=== PATIENT | male | born 1980 | race Caucasian/White ===

== ENCOUNTER 2016-08-11 16:00 | Emergency (ER) | payer OTHER ==
[~2016-08-11] VITALS: Ht 177.8 cm; Wt 93.5 kg
[2016-08-11 16:38] VITALS: TEMP 36.3; Ht 177.8 cm; Wt 93.5 kg
[2016-08-11] MEDS ORDERED: ONDANSETRON INJ 2 MG/ML 2 ML VIAL IV STA (17:27)
[2016-08-11] MEDS ORDERED: MoRPHine SULFATE 10 MG/ML CARP/VIAL IV STA ×2 (17:27→18:11)
[2016-08-11] MEDS ORDERED: SODIUM CHLORIDE 0.9% 1000ML 1,000 ML IV STA (17:27)
[2016-08-11 17:47] LABS: BUN/CREATININE RATIO 8.4 (10-20); CREATININE 1.3 mg/dl (0.60-1.40); POTASSIUM 3.7 mmol/L (3.5-5.1)
[2016-08-11 17:51] LABS: BASO % 0.2 %; BASO ABS # 0.04 K/uL (0-0.2); COMPLETE YES; EOS % 0.4 %; HEMATOCRIT 43.2 % (42-52); IG% 0.3 %; LYMPH % 8.6 %; LYMPH ABS # 1.68 K/uL (1.2-3.4); MEAN CELL VOLUME 89.1 fL (80-100); MEAN CORPUSCULAR HEMOGLOBIN 30.3 pg (25-34); MEAN PLATELET VOLUME 11.5 fL (7.4-10.4); MONO % 6.2 %; NEUT % 84.3 %; PLATELET COUNT 307 K/uL (130-400); RED BLOOD COUNT 4.85 M/uL (4.7-6.1); WHITE BLOOD COUNT 19.57 K/uL (4.8-10.8)
[2016-08-11 17:54] LABS: URINE APPEARANCE CLEAR (CLEAR); URINE BILIRUBIN NEG (NEG); URINE COLOR YELLOW; URINE EPITHELIAL CELL AUTO 0-5 /lpf (0-5); URINE NITRITE NEG (NEG); UROBILINOGEN NEG (NEG)
[2016-08-11 17:59] LABS: MANUAL MICROSCOPIC REQUIRED? NO; REVIEW REQ? NO
--- NOTE | 2016-08-11 18:16 | DIAGNOSTIC IMAGING REPORT ---
ABDOMEN AND PELVIS CT WITHOUT CONTRAST CT DOSE: 914.49 mGy.cm HISTORY: Pain EVALUATE FLANK PAIN/HEMATURIA TECHNIQUE: Multiaxial CT images of the abdomen and pelvis were performed without the use of intravenous and oral contrast according to the standard department stone protocol. COMPARISON STUDY: None. FINDINGS: Lung bases are clear. Liver spleen and pancreas are unremarkable. Gallbladder is negative for distention. There are several small calcifications of the kidneys bilaterally considered nonobstructive. There is mild right hydroureteronephrosis. There is a 2 mm obstructing calculus the distal right ureter. Bladder is midline. There are no contained calcifications. Bowel pattern overall is nonobstructive. The appendix is normal. IMPRESSION: 1. 2 mm obstructing distal right ureteral calculus. 2. Mild right hydroureteronephrosis. 3. Several additional nonobstructing renal calcifications bilaterally Electronically signed by: Bonifacio Lawson M.D. 08/11/2016 6:15 PM Dictated Date/Time: 08/11/2016 6:13 PM
[2016-08-11] MEDS ORDERED: HYDR-5688 PO (18:46)
[2016-08-11 19:00] VITALS: BP 138/88; PULSE 66; O2SAT 100
--- NOTE | 2016-08-14 11:02 | EMERGENCY ROOM VISIT NOTE ---
ED Visit Note First contact with patient: 16:50 Chief Complaint: Right flank pain. History of Present Illness: Mr. Kothari is a 36 year-old white male who ambulates into the ED complaining of right flank pain. Historically patient reports no significant past medical history. Patient reports a acute onset of right flank pain that started approximately 4 hours ago. Since that time the pain has been has been constant but slightly waxed and waned in intensity. The pain is currently described as sharp and cramping. The pain is radiating into the right lower quadrant and penis. He rates his discomfort 10/10. He has not identified any aggravating or alleviating factors related to the pain. He has not taken any medications for pain prior to arrival at the hospital. Associated with his pain he reports he' s had chills with sweats and nausea with multiple episodes of vomiting. Patient denies iain fevers, skin eruptions, skin color changes, upper respiratory tract symptoms, shortness of breath, chest pain, diarrhea, constipation, rectal bleeding, black/tarry stools, urinary symptoms, hematuria. Review of Systems: As noted above in history of present illness. All body systems were reviewed and found to be negative as noted above. Past Medical History: Patient denies. Current Medications: Patient denies. Allergies to Medications: Patient denies. Social History: Patient is currently employed; he feels safe in his home environment; he denies tobacco use. Physical Examination: Vital Signs: Date Time Temp Pulse Resp B/P Pulse Ox O2 Delivery O2 Flow Rate FiO2 08/11/16 19:00 66 18 138/88 100 08/11/16 17:35 62 18 146/97 100 Room Air 08/11/16 16:38 36.3 69 18 146/86 100 Room Air GENERAL: 36-year-old male in moderate distress due to pain, nontoxic-appearing, afebrile and hemodynamically stable. NEUROLOGICAL: Awake, alert and oriented to person, place and time. Answering questions appropriately and following commands. Normal gait. Good hand eye coordination. SKIN: Warm, dry and pink. No soft tissue eruptions or trauma noted. HEENT: Atraumatic and normocephalic. PERRLA. Sclera white and conjunctiva pink. Pharynx is nonerythematous or edematous. Speech normal. Trachea midline. No jugular venous distention. BACK: No tenderness over the bony cervical, thoracic and lumbar spine. No tenderness throughout the paraspinous muscles. No palpable muscle spasm. No CVA tenderness. THORAX: Lungs sounds are clear to auscultation and equal bilaterally with symmetrical chest wall. No wheezing, rales or rhonchi. HEART: Regular rate and rhythm. No gallops, rubs or murmurs are appreciated. ABDOMEN: Flat, soft and nontender. Positive bowel sounds in all quadrants. No guarding, rigidity or organomegaly. EXTREMITIES: Moves all extremities well on command and with purpose. All distal neurovascular statuses are intact and equal bilaterally. ED Course: Patient is assessed as noted above. Laboratory Testing: Test 08/11/16 16:45 08/11/16 16:55 Range/Units Urine Color YELLOW Urine Appearance CLEAR CLEAR Urine pH 5.0 4.5-7.5 Urine Specific [place] 1.020 1.000-1.030 Urine Protein NEG NEG Urine Glucose (UA) NEG NEG Urine Ketones 3+ NEG Urine Occult Blood 3+ NEG Urine Nitrite NEG NEG Urine Bilirubin NEG NEG Urine Urobilinogen NEG NEG Urine Leukocyte Esterase NEG NEG Urine WBC (Auto) 1-5 0-5 /hpf Urine RBC (Auto) >30 0-4 /hpf Urine Hyaline Casts (Auto) 1-5 0-5 /lpf Urine Epithelial Cells (Auto) 0-5 0-5 /lpf Urine Bacteria (Auto) NEG NEG White Blood Count 19.57 4.8-10.8 K/uL Red Blood Count 4.85 4.7-6.1 M/uL Hemoglobin 14.7 14.0-18.0 g/dL Hematocrit 43.2 42-52 % Mean Corpuscular Volume 89.1 80-100 fL Mean Corpuscular Hemoglobin 30.3 25-34 pg Mean Corpuscular Hemoglobin Concent 34.0 32-36 g/dl Platelet Count 307 130-400 K/uL Mean Platelet Volume 11.5 7.4-10.4 fL Neutrophils (%) (Auto) 84.3 % Lymphocytes (%) (Auto) 8.6 % Monocytes (%) (Auto) 6.2 % Eosinophils (%) (Auto) 0.4 % Basophils (%) (Auto) 0.2 % Neutrophils # (Auto) 16.51 1.4-6.5 K/uL Lymphocytes # (Auto) 1.68 1.2-3.4 K/uL Monocytes # (Auto) 1.21 0.11-0.59 K/uL Eosinophils # (Auto) 0.08 0-0.5 K/uL Basophils # (Auto) 0.04 0-0.2 K/uL RDW Standard Deviation 44.7 36.4-46.3 fL RDW Coefficient of Variation 13.7 11.5-14.5 % Immature Granulocyte % (Auto) 0.3 % Immature Granulocyte # (Auto) 0.05 0.00-0.02 K/uL Sodium Level 142 136-145 mmol/L Potassium Level 3.7 3.5-5.1 mmol/L Chloride Level 106 98-107 mmol/L Carbon Dioxide Level 26 21-32 mmol/L Anion Gap 10.0 3-11 mmol/L Blood Urea Nitrogen 11 7-18 mg/dl Creatinine 1.30 0.60-1.40 mg/dl Est Creatinine Clear Calc Drug Dose 91.1 ml/min Estimated GFR () 81.9 Estimated GFR (Non- 70.7 BUN/Creatinine Ratio 8.4 10-20 Random Glucose 112 70-99 mg/dl Calcium Level 9.0 8.5-10.1 mg/dl Total Bilirubin 0.7 0.2-1 mg/dl Direct Bilirubin 0.1 0-0.2 mg/dl Aspartate Amino Transf (AST/SGOT) 23 15-37 U/L Alanine Aminotransferase (ALT/SGPT) 31 12-78 U/L Alkaline Phosphatase 46 45-117 U/L Total Protein 6.5 6.4-8.2 gm/dl Albumin 4.0 3.4-5.0 gm/dl Lipase 83 73-393 U/L Noncontrast Abdominal/Pelvic CT: Was read by myself and the radiologist showing a 2 mm obstructing distal right ureter calculus with mild hydronephrosis. Patient was hydrated with normal saline and he received a total of 12 mg of morphine IV for pain and 4 mg of Zofran IV. Patient was reassessed multiple times during his stay in the emergency department. Patient's case was reviewed with Dr. Rehman; we agreed on diagnostic approach, treatment, disposition and plan. Patient was educated about tonight's findings and instructed on his treatment plan; he verbalizes understanding and agreement with plan. Clinical Impression: Right ureter calculus. Decision-Making: Initially my differential diagnosis I consider urinary calculus , pyelonephritis, musculoskeletal disorder, pancreatitis, hepatitis and other causes. Disposition: Patient discharged home in stable condition accompanied by friends ; prior to departure he was reassessed and subjectively reported he was feeling much better and rated his discomfort 2/10. Plan: Patient was placed on sliding pain scale of ibuprofen, acetaminophen and [place]; appropriate narcotic precautions were discussed with the patient. Patient was encouraged to strain all urine and collect all stones for analysis. Patient was encouraged to increase clear fluids. Patient was encouraged to follow-up with neurology for definitive care and treatment. Patient was encouraged return to the ED for uncontrolled pain, fevers, uncontrolled vomiting, urinary symptoms, or any new/concerning symptoms.
== END 2016-08-11 18:58 | disposition home or self-care (01) ==
LOC: MERGE 16:04 → C.EDB 16:04 → C.EDA 18:58
DX: N13.2 Hydronephrosis with renal and ureteral calculous obstruction (principal)